=== PATIENT | female | born 1960 | race Caucasian/White ===

== ENCOUNTER → 2016-07-22 | Outpatient (CLI) | payer BC | END | disposition short-term general hospital (02) | LOC: CLRHEU 10:46 | DX: M13.0 Polyarthritis, unspecified (principal); M13.842 Other specified arthritis, left hand; M13.841 Other specified arthritis, right hand; R70.0 Elevated erythrocyte sedimentation rate; R79.82 Elevated C-reactive protein (CRP) ==